=== PATIENT | female | born 1975 | race Caucasian/White ===

== ENCOUNTER → 2023-05-23 19:29 | Outpatient (REF) | payer BC, SELFPAY | LOC: WDC 19:29 | PROVIDERS: ATTENDING PHYSICIAN Nurse Practitioner Family; FAMILY PHYSICIAN Internal Medicine | DX: Z12.31 Encounter for screening mammogram for malignant neoplasm of breast (principal) | CPT/HCPCS: 77063; 77067 ==

== ENCOUNTER 2024-04-08 11:22 | Emergency (ER) | payer BC, SELFPAY ==
[2024-04-08 11:23] VITALS: BP 113/83
[2024-04-08 11:40] LABS: % Basophils 0.2 % (0-2); % Eosinophils 0.2 % (0-6); % Immature Granulocytes 0.3 % (0-0.5); % Lymphocytes 20.7 % (20.5-51.1); % Monocytes 9.3 % (1.7-9.3); % Neutrophils 69.3 % (42.2-75.2); Absolute Lymphocytes 1.2 10^3/uL (1.2-3.4); Absolute Monocytes 0.6 10^3/uL (0.1-0.6); Absolute Neutrophils 4.1 10^3/uL (1.4-6.5); Hematocrit 41.5 % (37.0-47.0); Hemoglobin 13.8 g/dL (12.0-16.0); Mean Corp Hgb Conc. 33.3 g/dL (33.0-37.0); Mean Corpuscular Hgb 29.4 pg (27.0-31.0); Mean Corpuscular Volume 88.3 fL (81.0-99.0); Mean Platelet Volume 9.5 fL (7.4-10.4); Nucleated Red Blood Cells % 0 %; Platelet Count 216 10^3/uL (130-400); Red Cell Dist. Width 13.2 % (11.5-14.5); White Blood Cell Count 5.9 10^3/uL (4.8-10.8)
[2024-04-08 11:55] LABS: COVID-19 Antigen Negative (Negative)
[2024-04-08 12:14] LABS: ALT (SGPT) 24 U/L (0-35); AST (SGOT) 27 U/L (14-36); Albumin 4.5 g/dl (3.5-5.0); Alkaline Phosphatase 82 U/L (38-126); Blood Urea Nitrogen 12 mg/dl (7-17); Calcium 9.2 mg/dl (8.4-10.2); Carbon Dioxide 22 mmol/L (22-30); Chloride 105 mmol/L (98-107); Glucose 125 mg/dl (70-99); Potassium 3.5 mmol/L (3.5-5.1); Sodium 137 mmol/L (135-145); Total Bilirubin 0.4 mg/dl (0.2-1.3); Total Protein 7.2 g/dl (6.3-8.2); eGFR > 60.00
--- NOTE | 2024-04-08 13:14 | ED.GENMED ---
History of Present Illness
General
Chief Complaint: Cold/Flu/URI Symptoms
Source: patient
Exam Limitations: none
Time Seen by Provider: 04/08/24 11:59
Nursing documentation reviewed up to this point in time: agreed with
History of Present Illness
History of Present Illness:
48-year-old female presenting to the emergency department today with concerns of generalized weakness cough nausea shortness of breath over the past 2 weeks.
Symptoms 2 weeks ago as well as the rest of the family symptoms seem to improve but had similar symptoms recur a few days ago. Denies any chest pain shortness of breath today.
Past History
Past History
ED Past Medical History: Hypercholesterolemia and Other (migraine HAs)
ED Past Surgical History: Gynecological
Social History
Tobacco: Non-smoker
Alcohol: None
Drug: None
Personal:
Living: with family
Review of Systems
Review of Systems
Allergies reviewed?: Yes
All Other Systems: ROS reviewed and negative except as documented in HPI and ROS
Phy Exam
Physical Exam
Physical Exam:
GENERAL: Alert , in no apparent distress
EYE: pupils equal and reactive
NECK: Supple, no significant adenopathy.
ENT: Swollen boggy nasal turbinates, redness and irritation of the posterior pharynx without significant swelling. o/p clr, mmm.
CARDIAC: Regular rate and rhythm .
LUNGS: Clear breath sounds bilaterally, no acute respiratory distress, no wheezes/rales/rhonchi
ABDOMEN: Soft, without focal tenderness, no r/g, no cvat
NEUROLOGICAL: Alert and oriented, no focal neuro deficits
SKIN: Warm and dry, skin intact.
MUSCULOSKELETAL: No edema, well perfused.
PSYCH: Normal and appropriate interaction.
Course
Orders/Labs/Results
Orders:
Orders
04/08/24 11:33
CMP [Comprehensive Metabolic Panel] Urgent
COVID-19 Antigen Urgent
Source: Nasal Swab
Complete Blood Count/With Diff Urgent
Influenza A+B Rapid Molecular Urgent
RADHA Source: Nasal Swab
Specimen Description:
04/08/24 12:05
Chest [CR Chest - 2 Views ] Urgent
Comment:
Reason For Exam: cough
04/08/24 13:14
Acetaminophen [Tylenol] 650 mg PO NOW STA
Ibuprofen [Motrin] 600 mg PO NOW STA
Abnormal Lab Results
04/08/24
11:33
Glucose 125 H mg/dl
(70-99)
04/08/24 11:33
04/08/24 11:33
Vital Signs
Initial and Last Documented VS:
Initial Vital Signs
Temp Pulse Resp BP Pulse Ox
98.5 F 98 16 113/83 98
04/08/24 11:23 04/08/24 11:23 04/08/24 11:23 04/08/24 11:23 04/08/24 11:23
Last Documented Vital Signs
Temp Pulse Resp BP Pulse Ox
98.5 F 98 16 113/83 98
04/08/24 11:23 04/08/24 11:23 04/08/24 11:23 04/08/24 11:23 04/08/24 11:23
MDM/Problems Addressed
MDM/Problems Addressed:
48-year-old female presenting to the emergency department today with concerns of cough nausea upper respiratory symptoms over the past 2 weeks seem to improve a few days ago and but worsened over the past day or 2. Here patient well-appearing
vital signs are normal patient no distress labs unremarkable but flu test positive. Chest x-ray without evidence of pneumonia. Patient's flu likely explaining symptoms at this point stable for outpatient management return precautions given.
*Critical Care Note
Total Time (30-74mins, 75-104mins- exclusive of procedures): Not Applicable
ED Attending Note
-
Portions of this chart may have been created with voice recognition software.� Occasional wrong word or��sound alike� substitutions may have occurred due to the inherent limitations of voice recognition software.
Discharge Plan
Departure
Patient Disposition: Home (Routine Discharge)
Date of Disposition: 04/08/24
Time of Disposition: 13:28
Patient with high blood pressure during this ER visit?: No
Condition: Good
Covid-19: Not Applicable
Discharge Problem:
Influenza
Instructions: Flu
Prescriptions:
New
fluticasone propionate [Aller-Miguel A] 50 mcg/actuation spray,suspension
1 spray intranasal BID Qty: 16 0RF
No Action
TABLET Tab
1 tab PO DAILY
ibuprofen 600 MG tablet
600 mg PO Q4HPRN PRN (Reason: moderate pain/cramps) 0RF
prochlorperazine maleate 10 MG tablet
10 mg PO Q6HPRN PRN (Reason: n/v, ADKINS) Qty: 10 0RF
Referrals:
Latasha Fonseca MD [Family Provider] -
Activity Restrictions/Additional Instructions:
You came to the emergency department today with concerns of symptoms consistent with the flu. Your flu test was positive. Please take the prescribed occasions as well as Motrin and Tylenol stay hydrated and return for any worsening, new or
concerning symptoms.
Interventions
Interventions:
*Risk Screen - Suicide Last Done: 04/08/24 11:23
*General Assessment Last Done: 04/08/24 11:23
*Neglect/Abuse Screening Last Done: 04/08/24 11:23
*ED COVID-19 Vaccine History Last Done: 04/08/24 11:23
Discharge Date and Time
Print Language: SAMI
[2024-04-08] MEDS: TYLENOL 650 MG PO (13:22)
[2024-04-08] MEDS: MOTRIN 600 MG PO (13:23)
== END 2024-04-08 13:46 | disposition home or self-care (01) ==
LOC: EMR 11:22
PROVIDERS: EMERGENCY PHYSICIAN Emergency Medicine; FAMILY PHYSICIAN Internal Medicine
DX: J11.1 Influenza due to unidentified influenza virus with other respiratory manifestations (principal); E78.00 Pure hypercholesterolemia, unspecified
CPT/HCPCS: 99283; 71046; 80053; 85025; 87502; 87811

== ENCOUNTER → 2024-09-04 16:35 | Outpatient (REF) | payer BC, SELFPAY | LOC: WDC 16:35 | PROVIDERS: ATTENDING PHYSICIAN Internal Medicine | DX: Z12.31 Encounter for screening mammogram for malignant neoplasm of breast (principal); Z12.39 Encounter for other screening for malignant neoplasm of breast | CPT/HCPCS: 77063; 77067 ==

== ENCOUNTER → 2024-09-14 08:39 | Outpatient (REF) | payer BC, SELFPAY | LOC: WDC 08:39 | PROVIDERS: ATTENDING PHYSICIAN Internal Medicine; REFERRING PHYSICIAN Nurse Practitioner Family | DX: R92.8 Other abnormal and inconclusive findings on diagnostic imaging of breast (principal) | CPT/HCPCS: 76642 ==

== ENCOUNTER → 2024-09-24 17:00 | Outpatient (REF) | payer BC, SELFPAY | LOC: RAD 17:00 | PROVIDERS: ATTENDING PHYSICIAN Internal Medicine | DX: R59.0 Localized enlarged lymph nodes (principal) | CPT/HCPCS: 71260; Q9967 ==

== ENCOUNTER → 2024-11-13 10:22 | Outpatient (REF) | payer BC, SELFPAY ==
[2024-11-13 12:12] LABS: Hematocrit 41.5 % (37.0-47.0); Hemoglobin 13.8 g/dL (12.0-16.0); Mean Corp Hgb Conc. 33.3 g/dL (33.0-37.0); Mean Corpuscular Volume 89.2 fL (81.0-99.0); Nucleated Red Blood Cells % 0 %; Platelet Count 211 10^3/uL (130-400); Red Cell Dist. Width 13.1 % (11.5-14.5)
[2024-11-13 12:25] LABS: APTT 30.6 Sec (23.4-35.0); INR 0.94; PT 13.1 Sec (11.4-14.6)
[2024-11-13 12:49] LABS: Blood Urea Nitrogen 16 mg/dl (7-17); Calcium 9.7 mg/dl (8.4-10.2); Carbon Dioxide 26 mmol/L (22-30); Chloride 104 mmol/L (98-107); Glucose 102 mg/dl (70-99); Potassium 4.6 mmol/L (3.5-5.1); Sodium 137 mmol/L (135-145); eGFR > 60.00
== END ==
LOC: HWLAB 10:22
PROVIDERS: ATTENDING PHYSICIAN Internal Medicine
DX: Z01.818 Encounter for other preprocedural examination (principal)
CPT/HCPCS: 36415; 80048; 85025; 85610; 85730

== ENCOUNTER → 2025-02-11 09:04 | Outpatient (REF) | payer BC, SELFPAY ==
[2025-02-11 12:28] LABS: Blood Urea Nitrogen 15 mg/dl (7-17); Calcium 9.7 mg/dl (8.4-10.2); Carbon Dioxide 23 mmol/L (22-30); Chloride 110 mmol/L (98-107); Glucose 114 mg/dl (70-99); Hematocrit 40.0 % (37.0-47.0); Hemoglobin 13.2 g/dL (12.0-16.0); Mean Corp Hgb Conc. 33.0 g/dL (33.0-37.0); Mean Corpuscular Volume 88.5 fL (81.0-99.0); Nucleated Red Blood Cells % 0 %; Platelet Count 223 10^3/uL (130-400); Potassium 4.3 mmol/L (3.5-5.1); Red Cell Dist. Width 12.9 % (11.5-14.5); Sodium 137 mmol/L (135-145); eGFR > 60.00
[2025-02-11 12:42] LABS: APTT 28.6 Sec (23.4-35.0); INR 0.96; PT 13.1 Sec (11.4-14.6)
== END ==
LOC: HWLAB 09:04
PROVIDERS: ATTENDING PHYSICIAN Internal Medicine
DX: Z01.818 Encounter for other preprocedural examination (principal)
CPT/HCPCS: 36415; 80048; 85025; 85610; 85730

== ENCOUNTER → 2025-03-25 08:17 | Outpatient (REF) | payer BC, SELFPAY | LOC: HWRAD 08:17 | PROVIDERS: ATTENDING PHYSICIAN Obstetrics & Gynecology; FAMILY PHYSICIAN Internal Medicine | DX: R10.20 Pelvic and perineal pain unspecified side (principal) | CPT/HCPCS: 76830; 76856 ==